=== PATIENT | female | born 1990 | race African-American/Black ===

== ENCOUNTER 2018-12-04 03:45 | Emergency (ER) | payer MEDICAID, OTHER ==
[~2018-12-04] VITALS: Ht 167.6 cm; Wt 74.8 kg
[2018-12-04 06:13] LABS: Alanine Aminotransferase 21 U/L (13-56); Albumin 3.2 g/dL (3.4-5.0); Alkaline Phosphatase 92 U/L (45-117); Aspartate Aminotransferase 16 U/L (15-37); BUN/Creatinine Ratio 16.8; Bilirubin, Total 0.2 mg/dL (0.2-1.0); Blood Urea Nitrogen 17 mg/dL (7-18); Calcium 8.5 mg/dL (8.5-10.1); GFR African American 83 mL/min; GFR Non-African American 69 mL/min; Glucose 87 mg/dL (74-106); Magnesium 2.3 mg/dL (1.6-2.6); Total Protein 7.4 g/dL (6.4-8.2)
[2018-12-04 06:52] LABS: Basophils # (auto) 0.1 uL; Basophils % (auto) 0.7 % (0.0-2.0); Eosinophils # (auto) 0.1 uL; Eosinophils % (auto) 1.3 % (0.0-7.0); Hematocrit 33.2 % (36.0-46.0); Hemoglobin 10.9 g/dL (12.2-16.2); Lymphocytes # (auto) 3.6 uL; Lymphocytes % (auto) 36.9 % (10.0-50.0); Mean Corpuscular Hemoglobin 27.1 pg (28.0-32.0); Mean Corpuscular Hgb Conc. 32.9 g/dL (32.0-36.0); Mean Corpuscular Volume 82.4 fL (80.0-100.0); Monocytes # (auto) 0.7 uL; Monocytes % (auto) 7.3 % (0.0-12.0); Neutrophils # (auto) 5.2 uL; Neutrophils % (auto) 53.8 % (37.0-80.0); Platelet Count (auto) 280 10^3/uL (140-450); Red Blood Cells 4.03 10^6/uL (4.0-5.20); Red Cell Distribution Width 17.6 % (11.8-14.3); White Blood Cell 9.6 10^3/uL (4.4-10.8)
[2018-12-04 07:07] LABS: Anion Gap 8 (5-15); Carbon Dioxide 23 mmol/L (21-32); Chloride 110 mmol/L (98-107); Potassium 4.5 mmol/L (3.5-5.1); Sodium 141 mmol/L (136-145)
[2018-12-04 08:33] VITALS: BP 115/76
== END 2018-12-04 09:32 | disposition home or self-care (01) ==
LOC: ER 03:45
DX: R07.89 Other chest pain (principal); Z88.0 Allergy status to penicillin
CPT/HCPCS: 36415; 71045; 80053; 83735; 83880; 84484; 85025; 93005

== ENCOUNTER 2019-03-28 13:09 | Inpatient (IN) | payer MEDICAID ==
[~2019-03-28] VITALS: Ht 162.6 cm; Wt 109.1 kg
[2019-03-28] MEDS ORDERED: SODIUM CHLORIDE 0.9% 500 ML IVB ONE (13:53)
[2019-03-28] MEDS ORDERED: ONDANSETRON HCL 4 MG/2 ML VIAL IV ONE (14:00)
[2019-03-28] MEDS ORDERED: MORPHINE SULFATE 4 MG/ML SYR/VIAL IV ONE (14:00)
[2019-03-28 14:04] LABS: Basophils # (auto) 0.1 uL; Eosinophils # (auto) 0.1 uL; Eosinophils % (auto) 1.5 % (0.0-7.0); Hematocrit 38.2 % (36.0-46.0); Hemoglobin 12.7 g/dL (12.2-16.2); Lymphocytes # (auto) 3.2 uL; Lymphocytes % (auto) 36.5 % (10.0-50.0); Mean Corpuscular Hemoglobin 28.1 pg (28.0-32.0); Mean Corpuscular Hgb Conc. 33.3 g/dL (32.0-36.0); Mean Corpuscular Volume 84.3 fL (80.0-100.0); Monocytes # (auto) 0.6 uL; Monocytes % (auto) 6.3 % (0.0-12.0); Neutrophils # (auto) 4.9 uL; Neutrophils % (auto) 54.7 % (37.0-80.0); Nucleated Red Blood Cells % 0.1 %; Platelet Count (auto) 398 10^3/uL (140-450); Red Blood Cells 4.53 10^6/uL (4.0-5.20); White Blood Cell 8.9 10^3/uL (4.4-10.8)
[2019-03-28 14:18] LABS: Urine Bacteria NONE SEEN /hpf (None Seen); Urine Blood 2+ /uL (Negative); Urine Hyaline Cast FEW /lpf (0 - 2); Urine Mucus FEW (None Seen); Urine Specific Gravity 1.016 (1.001-1.035); Urine WBC 48 /hpf (0 - 5)
[2019-03-28 14:26] LABS: Albumin 3.8 g/dL (3.4-5.0); Calcium 8.9 mg/dL (8.5-10.1)
[2019-03-28 14:29] LABS: BUN/Creatinine Ratio 12.5; Bilirubin, Total 0.2 mg/dL (0.2-1.0); Total Protein 8.5 g/dL (6.4-8.2)
[2019-03-28] MEDS ORDERED: LEVOFLOXACIN 500MG 100 ML IV ONE (16:15)
[2019-03-28] MEDS: SODIUM CHLORIDE 0.9% 1,000 ML IV SCH (18:18)
[2019-03-28 18:35] VITALS: BP 123/96
--- NOTE | 2019-03-28 19:30 | NUR ---
OPENING SHIFT NOTE Assumed care of patient who is alert and oriented. Currently on room air with no s/s of SOB/distress or pain. Bed is in low locked position with side rails up x2. Call light is within reach. Patient encouraged to call for assistance when needed. Will continue to monitor for changes PRN.
[2019-03-28 20:00] VITALS: BP 117/82
[2019-03-28 22:00] VITALS: BP 117/82
[2019-03-29] MEDS: SODIUM CHLORIDE 0.9% 1,000 ML IV SCH ×3 (02:15→22:15)
[2019-03-29 05:50] VITALS: BP 112/67
[2019-03-29 06:44] LABS: Basophils # (auto) 0.1 uL; Basophils % (auto) 1.3 % (0.0-2.0); Eosinophils # (auto) 0.1 uL; Eosinophils % (auto) 1.2 % (0.0-7.0); Hematocrit 34.4 % (36.0-46.0); Hemoglobin 11.8 g/dL (12.2-16.2); Lymphocytes # (auto) 2.3 uL; Lymphocytes % (auto) 32.2 % (10.0-50.0); Mean Corpuscular Hemoglobin 28.1 pg (28.0-32.0); Mean Corpuscular Hgb Conc. 34.3 g/dL (32.0-36.0); Mean Corpuscular Volume 81.8 fL (80.0-100.0); Monocytes # (auto) 0.4 uL; Neutrophils # (auto) 4.2 uL; Neutrophils % (auto) 59.3 % (37.0-80.0); Nucleated Red Blood Cells % 0.1 %; Platelet Count (auto) 337 10^3/uL (140-450); Red Blood Cells 4.21 10^6/uL (4.0-5.20); White Blood Cell 7.1 10^3/uL (4.4-10.8)
[2019-03-29 06:57] LABS: Albumin 3.3 g/dL (3.4-5.0); Calcium 8.7 mg/dL (8.5-10.1); INR 0.96 (0.9-1.15); Partial Thromboplastin Time 27.9 sec (23.64-32.05); Potassium 3.8 mmol/L (3.5-5.1)
[2019-03-29 07:02] LABS: BUN/Creatinine Ratio 11.3; Bilirubin, Total 0.3 mg/dL (0.2-1.0); Total Protein 7.3 g/dL (6.4-8.2)
[2019-03-29 09:00] VITALS: BP 109/71
--- NOTE | 2019-03-29 09:17 | NUR ---
Patient taken down to preop care endorse to Katherine martin. No distress or sob noted. Will cont care on arrival
[2019-03-29] MEDS ORDERED: LABETALOL HCL 5 MG/ML ML 20ML VIAL IV ONE (09:50)
[2019-03-29] MEDS ORDERED: PROPOFOL 10 MG/ML 20 ML IV ONE (09:50)
[2019-03-29] MEDS ORDERED: MEPERIDINE HCL (50 MG/ML) 1 ML VIAL ONE (09:50)
[2019-03-29] MEDS ORDERED: ROCURONIUM 10MG/ML 10ML VIAL IV ONE (09:50)
[2019-03-29] MEDS ORDERED: ONDANSETRON HCL 4 MG/2 ML VIAL ONE (09:50)
[2019-03-29] MEDS ORDERED: fentaNYL CITRATE 100 MCG/2 ML VL ONE (09:50)
[2019-03-29] MEDS ORDERED: MIDAZOLAM HCL 1MG/1ML-2 ML VIAL ONE (09:50)
[2019-03-29] MEDS ORDERED: SODIUM CHLORIDE LOCK 10 ML ONE (09:50)
[2019-03-29] MEDS: LEVOFLOXACIN 500MG 100 ML IV SCH ×2 (10:00→10:34)
[2019-03-29] MEDS: FAMOTIDINE (10MG/ML) 2ML VL IV SCH (10:00)
[2019-03-29] MEDS ORDERED: SUCCINYLCHOLINE CHLORIDE 20 MG/ML 10ML VIAL IV ONE (10:26)
[2019-03-29] MEDS ORDERED: METOCLOPRAMIDE HCL 5MG/ml INJ 2ml VIAL IV PRN (10:30)
[2019-03-29] MEDS ORDERED: KETOROLAC TROMETH 30 MG/ML 1ML VIAL IV ONE (10:30)
[2019-03-29] MEDS ORDERED: fentaNYL CITRATE 100 MCG/2 ML VL IV PRN (10:30)
[2019-03-29] MEDS ORDERED: KETOROLAC TROMETH 60MG/2ML VIAL ONE (11:13)
[2019-03-29] MEDS ORDERED: GLYCOPYRROLATE 0.2 MG/ML 1ML VIAL ONE (11:13)
[2019-03-29] MEDS ORDERED: NEOSTIGMINE 1 MG/ML INJ (10mg/10ML VIAL) ONE (11:13)
[2019-03-29] MEDS: HYDROmorphone HCL 2 MG/ML VL IV PRN ×2 (12:16→12:26)
--- NOTE | 2019-03-29 12:35 | NUR ---
Back from Pac[facility] Patient's dressing x3 to abd, abd binder in place as ordered. Patient provided with IS and instructed on use she verbalized understanding and returned demonstration. No distress or sob noted. VSS. Call light within reach and bed alarm on at this time
[2019-03-29 13:00] VITALS: BP 137/93
[2019-03-29 17:00] VITALS: BP 108/65
--- NOTE | 2019-03-29 18:18 | NUR ---
STACEY DAVIS states they want to leave the floor Against Medical Advice (AMA) to go outside and smoke. Patient encouraged to stay on floor and not smoke. Patient advised of the risks of leaving AMA including and not limited to . Patient verbalized understanding and signed required AMA form and placed in chart.
--- NOTE | 2019-03-29 19:00 | NUR ---
PATIENT CARE ENDORSED ENDORSED CARE TO FRANKIE COURTNEY. PATIENT LAYING IN BED NO ACUTE DISTRESS OR SOB NOTED. PATIENT'S FAMILY AT BEDSIDE. CALL LIGHT WITHIN REACH
--- NOTE | 2019-03-29 19:20 | NUR ---
OPENING SHIFT NOTE Assumed care of patient who is alert and oriented. S/P Lap Mirna, currently on room air with no s/s of SOB/distress or pain. Minimal drainage noted on 3 abdominal incision gauze, abdominal binder in place. Bed is in low locked position with side rails up x2. Call light is within reach. Patient encouraged to call for assistance when needed. Patients family at bed side. Will continue to monitor for changes PRN.
--- NOTE | 2019-03-29 21:15 | NUR ---
PAIN PATIENT VERBALIZES ABDOMINAL PAIN, NON RADIATING AND RATES IT 8/10. WILL ASSESS AND MEDICATE PER ORDER.
[2019-03-29] MEDS: MORPHINE SULF INJ 2 MG/ML SYRINGE 1ML IV PRN (21:21)
[2019-03-29 22:00] VITALS: BP_SYST 113; BP_SYST 121; BP_DIAS 72; BP_DIAS 75
[2019-03-30 05:00] VITALS: BP 121/82
[2019-03-30 06:27] LABS: Basophils # (auto) 0 uL; Basophils % (auto) 0.5 % (0.0-2.0); Eosinophils # (auto) 0.1 uL; Eosinophils % (auto) 0.6 % (0.0-7.0); Hematocrit 33.7 % (36.0-46.0); Hemoglobin 11.4 g/dL (12.2-16.2); Lymphocytes # (auto) 1.9 uL; Lymphocytes % (auto) 22.6 % (10.0-50.0); Mean Corpuscular Hemoglobin 28.2 pg (28.0-32.0); Mean Corpuscular Hgb Conc. 33.7 g/dL (32.0-36.0); Mean Corpuscular Volume 83.8 fL (80.0-100.0); Monocytes # (auto) 0.5 uL; Monocytes % (auto) 6.1 % (0.0-12.0); Neutrophils % (auto) 70.2 % (37.0-80.0); Nucleated Red Blood Cells % 0.1 %; Platelet Count (auto) 320 10^3/uL (140-450); Red Blood Cells 4.03 10^6/uL (4.0-5.20); Red Cell Distribution Width 15.6 % (11.8-14.3); White Blood Cell 8.5 10^3/uL (4.4-10.8)
[2019-03-30 07:01] LABS: Albumin 3.1 g/dL (3.4-5.0); Calcium 8.3 mg/dL (8.5-10.1); Potassium 3.6 mmol/L (3.5-5.1)
[2019-03-30 07:06] LABS: BUN/Creatinine Ratio 7.6; Bilirubin, Total 0.4 mg/dL (0.2-1.0); Total Protein 6.8 g/dL (6.4-8.2)
--- NOTE | 2019-03-30 08:00 | NUR ---
Opening Shift Note Assumed care of patient, awake, alert and oriented X4. No S/S of distress/SOB, complains of abdominal pain, 8/10, Antony Perdomo scale, informed will medicate with prescribed pain medication. IV to left hand, 22 gauge, patent and infusing 0.9% NS @ 100 ml/hr. Abdominal incisions X3 with all dressings intact, abdominal binder in place. Patient instructed on importance and proper use of IS, verbalized understanding. Instructed on POC and to call for assist PRN, verbalized understanding. Bed locked, in lowest position, call light within reach, will continue to monitor for changes Q1hr and PRN.
[2019-03-30] MEDS: SODIUM CHLORIDE 0.9% 1,000 ML IV SCH ×2 (08:20→18:15)
[2019-03-30] MEDS: ONDANSETRON HCL 4 MG/2 ML VIAL IV PRN ×2 (08:50→13:59)
[2019-03-30] MEDS: MORPHINE SULF INJ 2 MG/ML SYRINGE 1ML IV PRN (08:50)
[2019-03-30 09:00] VITALS: BP 129/83
[2019-03-30] MEDS: FAMOTIDINE (10MG/ML) 2ML VL IV SCH (11:26)
[2019-03-30] MEDS: LEVOFLOXACIN 500MG 100 ML IV SCH (11:26)
[2019-03-30 13:00] VITALS: BP 116/79
[2019-03-30 17:00] VITALS: BP 139/73
--- NOTE | 2019-03-30 19:11 | NUR ---
Care endorsed to ROZ Barlow, night nurse.
--- NOTE | 2019-03-30 19:40 | NUR ---
Opening shift Note Pt is resting in bed with eyes open and and resp rate is even and unlabored. No s/s of any distress noted. Family at bedside visiting. POC discussed with pt and pt verbalizes understanding. Bed is low, wheels are locked and call light is with in reach.
[2019-03-30] MEDS: HYDROcodone-ACET 5/325MG TAB PO PRN (21:28)
[2019-03-30 22:00] VITALS: BP_SYST 110; BP_SYST 115; BP_DIAS 70; BP_DIAS 77
[2019-03-31] MEDS: SODIUM CHLORIDE 0.9% 1,000 ML IV SCH (04:15)
[2019-03-31 05:00] VITALS: BP_SYST 110; BP_SYST 126; BP_DIAS 60; BP_DIAS 78
--- NOTE | 2019-03-31 08:00 | NUR ---
Opening Shift Note Assumed care of patient, awake, alert and oriented X4. No S/S of distress/SOB, complains of abdominal pain, 5/10, Antony Perdomo scale, informed will medicate with prescribed pain medication. IV to left hand, 22 gauge, patent and infusing 0.9% NS @ 100 ml/hr. Abdominal incisions X3 with all dressings intact, abdominal binder in place. Patient instructed on importance and proper use of IS, verbalized understanding. Instructed on POC and to call for assist PRN, verbalized understanding. Bed locked, in lowest position, call light within reach, will continue to monitor for changes Q1hr and PRN.
[2019-03-31 09:00] VITALS: BP 122/90
[2019-03-31] MEDS: HYDROcodone-ACET 5/325MG TAB PO PRN (09:01)
--- NOTE | 2019-03-31 10:07 | NUR ---
AMA Note STACEY DAVIS states they want to leave the hospital Against Medical Advice (AMA). Patient encouraged to stay for further treatment/stabilization. Dr Beth and Dr Gardner notified of patient's wishes. Patient advised of the risks and benefits of leaving AMA. Patient verbalized understanding. Patient encouraged to return to the ER if symptoms do not improve or worsen.
--- NOTE | 2019-03-31 10:20 | NUR ---
Johann RN, Charge Nurse notified patient left AMA.
--- NOTE | 2019-03-31 11:48 | NUR ---
Dr Beth notified patient left AMA.
== END 2019-03-31 10:15 | disposition left against medical advice (07) | DRG 263 ==
LOC: ER 13:09 → WEST WING 13:10
PROVIDERS: ADMIT Internal Medicine; ATTEND Internal Medicine
PROC: 0FT44ZZ Resection of Gallbladder, Percutaneous Endoscopic Approach (ICD-10-PCS; principal; 2019-03-29 10:36)
DX: K80.00 Calculus of gallbladder with acute cholecystitis without obstruction (principal); E66.01 Morbid (severe) obesity due to excess calories; N39.0 Urinary tract infection, site not specified; Z88.0 Allergy status to penicillin; Z82.49 Family history of ischemic heart disease and other diseases of the circulatory system; Z68.41 Body mass index [BMI] 40.0-44.9, adult
CPT/HCPCS: 36415; 76705; 80053; 81001; 81025; 83690; 85025; 85610; 85730; 94761; 96361; 96365; 96375; G0378; J0330; J1885; J1956; J2250; J2405; J2704; J3490